=== PATIENT | female | born 1990 | race Caucasian/White ===

== ENCOUNTER 2016-10-09 16:43 | Emergency (ER) | payer SELFPAY ==
[~2016-10-09] VITALS: Ht 180.3 cm; Wt 86.2 kg
--- NOTE | 2016-10-09 16:44 | NUR ---
1638--Patient was BIB [place] [employer] at this time and taken to OF.
[2016-10-09 16:45] VITALS: BP 139/97
--- NOTE | 2016-10-09 16:59 | NUR ---
PATIENT IS A 25 YO FEMALE [facility] FOR PRE BOOK ADMITS TO [facility] THIS AM. DROWSY AND SPEECH IS SLURRED AND LOC IS VERBAL [facility] ONLY.
--- NOTE | 2016-10-09 17:03 | NUR ---
Dr. Pickett evaluating patient.
[2016-10-09] MEDS ORDERED: ONDANSETRON 4 MG ODT PO ONE (17:10)
[2016-10-09 17:27] VITALS: BP 139/97
--- NOTE | 2016-10-09 17:28 | NUR ---
Patient discharged with v/s stable. Written and verbal after care instructions given and explained. Patient verbalized understanding. Police with in custody. All questions addressed prior to discharge. Advised to follow up with PMD.
== END 2016-10-09 17:28 | disposition home or self-care (01) ==
LOC: MED 16:43
DX: Z02.89 Encounter for other administrative examinations (principal); F11.10 Opioid abuse, uncomplicated; R11.0 Nausea; F17.200 Nicotine dependence, unspecified, uncomplicated; Z98.890 Other specified postprocedural states
CPT/HCPCS: 99283; S0119